=== PATIENT | male | born 1975 | race Hispanic/Latino ===

== ENCOUNTER → 2024-12-31 | Day surgery (SDC) | payer OTHER ==
[~2024-12-31] MED LIST: LIDOCAINE HCL 2% LOCAL INJ 5 ML SDV VIAL INJ ONE; PROPOFOL IV EMULSION 10 MG/ML 20 ML VIAL ONE; PROPOFOL IV EMULSION 50 ML IV ONE
[2024-12-31] MEDS: LACTATED RINGER'S 1,000 ML ONE (06:04)
[2024-12-31 09:05] VITALS: BP 147/97; PULSE 63; RESP 16; O2SAT 95
== END | disposition home or self-care (01) ==
LOC: OR 05:32
PROVIDERS: ATTEND Internal Medicine Gastroenterology
DX: Z12.11 Encounter for screening for malignant neoplasm of colon (principal); D12.5 Benign neoplasm of sigmoid colon; K64.8 Other hemorrhoids; I10 Essential (primary) hypertension; Z01.810 Encounter for preprocedural cardiovascular examination; Z01.812 Encounter for preprocedural laboratory examination; Z68.41 Body mass index [BMI] 40.0-44.9, adult
CPT/HCPCS: 45385; 88305; 93005; J2003; J2704; J7121